=== PATIENT | male | born 1990 | race Caucasian/White ===

== ENCOUNTER 2016-11-08 04:49 | Emergency (ER) | payer OTHER ==
[~2016-11-08] VITALS: Ht 188 cm; Wt 73.1 kg
[2016-11-08 05:46] LABS: Basophils # (auto) 0 uL; Eosinophils # (auto) 0 uL; Eosinophils % (auto) 0.1 % (0.0-7.0); Lymphocytes # (auto) 1.3 uL; Mean Corpuscular Hgb Conc. 33.4 g/dL (32.0-36.0); Mean Platelet Volume 9.3 fL (7.4-10.4); Monocytes # (auto) 0.5 uL; Monocytes % (auto) 5.4 % (0.0-12.0); Neutrophils % (auto) 81.5 % (37.0-80.0); Platelet Count (auto) 249 10^3/uL (140-450); Red Cell Distribution Width 12.8 % (11.6-16.0); White Blood Cell 9.8 10^3/uL (4.4-10.8)
[2016-11-08 06:10] LABS: Albumin 4.3 g/dL (3.4-5.0); BUN/Creatinine Ratio 9.6; Calcium 8.2 mg/dL (8.5-10.1); Potassium 3.8 mmol/L (3.5-5.1)
[2016-11-08 06:12] LABS: Bilirubin, Total 0.4 mg/dL (0.2-1.0); Total Protein 7.7 g/dL (6.4-8.2)
[2016-11-08] MEDS ORDERED: fentaNYL CITRATE 100 MCG/2 ML VL ONE (07:17)
[2016-11-08] MEDS ORDERED: SODIUM CHLORIDE 0.9% 250 ML IV ONE (07:25)
[2016-11-08] MEDS ORDERED: fentaNYL CITRATE 100 MCG/2 ML VL IV ONE (07:30)
[2016-11-08] MEDS ORDERED: MIDAZOLAM HCL 5 MG/ML-1ML VIAL IV ONE (07:30)
[2016-11-08] MEDS ORDERED: TETANUS-DIPTH-ACEL PERTUSSIS 0.5ML SYRG IM ONE (09:30)
[2016-11-08 10:53] VITALS: BP 121/79
== END 2016-11-08 11:18 | disposition home or self-care (01) ==
LOC: ER 04:52
DX: S43.005A Unspecified dislocation of left shoulder joint, initial encounter (principal); S60.512A Abrasion of left hand, initial encounter; J32.0 Chronic maxillary sinusitis; I10 Essential (primary) hypertension; F10.10 Alcohol abuse, uncomplicated; F12.10 Cannabis abuse, uncomplicated; Z23 Encounter for immunization; W10.1XXA Fall (on)(from) sidewalk curb, initial encounter; Y93.01 Activity, walking, marching and hiking; Y99.8 Other external cause status; Y92.89 Other specified places as the place of occurrence of the external cause
CPT/HCPCS: 23650; 36415; 70450; 73020; 73030; 80053; 80320; 85025; 85049; 90471; 90715; 94761; 96374; 99285; G0434; J2250; J3010; J7030; J7050

== ENCOUNTER 2019-03-18 02:46 | Emergency (ER) | payer MEDICAID, OTHER ==
[~2019-03-18] VITALS: Ht 185.4 cm; Wt 72.6 kg
[2019-03-18 04:15] VITALS: BP 145/80
[2019-03-18] MEDS ORDERED: BENZOCAINE (DENTAL) 20 % SPRAY 60ML MT ONE (05:00)
[2019-03-18] MEDS ORDERED: HYDROcodone-ACET 10/325MG TAB PO ONE (05:00)
[2019-03-18] MEDS ORDERED: cefTRIAXone SOD 1,000 MG VL IM ONE (05:00)
== END 2019-03-18 04:59 | disposition home or self-care (01) ==
LOC: ER 02:46
DX: K02.9 Dental caries, unspecified (principal); B99.9 Unspecified infectious disease; I10 Essential (primary) hypertension; F12.10 Cannabis abuse, uncomplicated
CPT/HCPCS: 96372; 99283; J0696

== ENCOUNTER 2020-06-02 00:34 | Emergency (ER) | payer MEDICAID ==
[~2020-06-02] VITALS: Ht 188 cm; Wt 70.3 kg
[2020-06-02 01:20] VITALS: BP 169/90
== END 2020-06-02 04:55 | disposition home or self-care (01) ==
LOC: ER 00:34
DX: F41.9 Anxiety disorder, unspecified (principal); F11.23 Opioid dependence with withdrawal; I10 Essential (primary) hypertension; F12.10 Cannabis abuse, uncomplicated